=== PATIENT | female | born 1995 | race Caucasian/White ===

== ENCOUNTER 2019-05-26 14:14 | Outpatient (CLI) | payer BC ==
--- NOTE | 2019-05-26 15:08 | ULT ---
RIGHT BREAST ULTRASOUND LIMITED: Date: 05/26/2019 HISTORY: Patient presents with focal pain in the right breast between the 9 o'clock and 12 o'clock positions, approximately 8.0 cm from the nipple. FINDINGS: There is a 0.2 x 0.5 x 0.5 cm probable lymph node in the right breast at 10 o'clock, 8.0 cm from the nipple. This would definitely be considered a normal finding. No solid or cystic other mass or abnorm al fluid collection. This will not account for any type of palpable finding. IMPRESSION: Evidence for small lymph node in the 10 o'clock position of the right breast, 8.0 cm from the nipple. BIRADS Category 2 - Benign findings. If the patient develops any true palpable finding, a follow-up ultrasound examination at that point i n time should be considered. Consider screening mammography at age 35-40 depending upon risk factors.
== END 2019-05-26 14:15 | disposition home or self-care (01) ==
LOC: BICULT 14:14
PROVIDERS: ATTEND Nurse Practitioner Family
DX: N64.4 Mastodynia (principal); N64.52 Nipple discharge; R59.0 Localized enlarged lymph nodes